=== PATIENT | male | born 1985 | race Caucasian/White ===

== ENCOUNTER 2018-02-09 13:24 | Emergency (ER) | payer OTHER ==
[2018-02-09 13:40] VITALS: RESP 16
[2018-02-09] MEDS ORDERED: SODIUM CHLORIDE 0.9% 1,000 ML IV STA (14:39)
[2018-02-09] MEDS ORDERED: diphenhydrAMINE 50 MG/ML 1 ML VIAL IVP STA (14:39)
[2018-02-09] MEDS ORDERED: KETOROLAC 30 MG/ML 1 ML VIAL IVP STA (14:39)
[2018-02-09] MEDS ORDERED: PROCHLORPERAZINE 10 MG TAB PO STA (14:40)
--- NOTE | 2018-02-09 14:46 | ED ---
Headache HPI - General Chief Complaint: Headache Stated Complaint: Fever, DOOLEY Time Seen by Provider: 02/09/18 14:19 Mode of arrival: ambulatory Limitations: no limitations - History of Present Illness Initial Comments: Patient is a 32-year-old male with a history of chronic migraines that presents for headache since Sunday. He states that since then, it has been worsening and feels a throbbing sensation back of his head and he feels like there is muscle stiffness whenever he flexes his neck and back. This morning, they became more concerned because he was having worsening symptoms but he took some Motrin and Tylenol and decided to come in. His who is a nurse practitioner was concerned because he also had 103 fever on Sunday. He denies any nausea/vomiting/diarrhea as well as cough but otherwise states that he may be coughing a little bit. He denies any occupational exposures but states that the kids have had similar type symptoms with upper respiratory infections. - Related Data Home Medications Medication Instructions Recorded Confirmed No Known Home Medications 02/09/18 02/09/18 Allergies Allergy/AdvReac Type Severity Reaction Status Date / Time No Known Allergies Allergy Verified 02/09/18 13:40 Review of Systems ROS Statement: Those systems with pertinent positive or pertinent negative responses have been documented in the HPI. Constitutional: Positive for chills, fatigue and fever. HENT: Negative for congestion. Respiratory: Negative for chest tightness, shortness of breath and wheezing. Positive for cough Cardiovascular: Negative for chest pain and palpitations. Gastrointestinal: Negative for abdominal pain. Negative for abdominal distention , diarrhea, nausea and vomiting. Genitourinary: Negative for dysuria. Musculoskeletal: Negative for back pain, neck pain and positive for neck stiffness. Skin: Negative for color change. Neurological: Negative for dizziness, speech difficulty, weakness and light- headedness. Positive for headache Psychiatric/Behavioral: Negative for agitation and confusion. Negative for anxiety ROS Other: All systems not noted in ROS Statement are negative. Past Medical History Past Medical History: No Reported History History of Any Multi-Drug Resistant Organisms: None Reported Past Surgical History: No Surgical Hx Reported Past Psychological History: No Psychological Hx Reported Smoking Status: Never smoker Past Alcohol Use History: None Reported Past Drug Use History: None Reported General Exam - General Exam Comments Initial Comments: Constitutional: Pt is oriented to person, place, and time. Pt appears well- developed and well-nourished. No distress. HENT: Head: Normocephalic and atraumatic. Eyes: EOM are normal. Neck: Normal range of motion. Neck supple. Negative Kernig and Brudzinski sign Cardiovascular: Normal rate, regular rhythm, S1 normal, S2 normal and normal heart sounds. Exam reveals no gallop and no friction rub. No murmur heard. Pulmonary/Chest: Effort normal and breath sounds normal. No tachypnea and no bradypnea. No respiratory distress. No wheezes or rales noted. Abdominal: Soft. Bowel sounds are normal. Pt exhibits no shifting dullness, no distension, no pulsatile liver, no fluid wave, no abdominal bruit and no ascites. There is no tenderness. There is no rigidity, no rebound, no guarding, no tenderness at McBurney's point and negative Barnett's sign. Musculoskeletal: Normal range of motion. Neurological: Pt is alert and oriented to person, place, and time. No cranial nerve deficit. Skin: Skin is warm and dry. No rash noted. Pt is not diaphoretic. No erythema. No pallor. Psychiatric: Pt has a normal mood and affect. Pt behavior is normal. Thought content normal. Limitations: no limitations Course Vital Signs 02/09/18 13:37 Temperature 98.4 F Pulse Rate 60 Respiratory 16 Rate Blood Pressure 139/83 O2 Sat by Pulse 100 Oximetry - Reevaluation(s) Reevaluation #1: 02/09/18 14:44 Possible treatment options were discussed with the family. It was advised that considering the patient's symptoms, lumbar puncture should be performed to evaluate for meningitis. However, it was also advised that other testing such as basic blood studies, chest x-ray and Monospot could be completed in addition to this. Patient and his kindly advised that they would like to try medical management with fluids as well as analgesics and defer lumbar puncture until labs have been obtained. The patient shows no signs of neuro deficits or meningeal signs and therefore advanced imaging including head CT would not be performed at this time. Reevaluation #2: 02/09/18 16:36 Discussed with patient and that there is no significant leukocytosis and a electrolytes were relatively within normal limits. Chest x-ray also showed that there is no infiltrate. Benefits and risks were discussed a lumbar puncture and it was advised that because there was concern of meningitis, lumbar puncture should be performed. However, joint decision between the patient and his who is a nurse practitioner, was made in the hospital and decided to decline the lumbar puncture. They stated that he felt much better after fluids and Toradol and that they would do close observation at home and return if the symptoms worsen. Medical Decision Making - Medical Decision Making As noted in the progress section, patient was noted to be resting comfortably in no acute distress at the time of discharge. Chest x-ray was also negative and one spot, strep screen negative. Patient and currently declined lumbar puncture and opted for conservative management at home and observation. Explained all labs and diagnostic test results and that we will discharge the patient home and patient is to follow up with PCP in 1-2 days and return to the ED if symptoms worsen. Pt is agreeable to plan. - Lab Data Result diagrams: 02/09/18 15:10 02/09/18 15:10 Lab Results 02/09/18 02/09/18 02/09/18 Range/Units 15:10 15:10 15:10 WBC 6.0 (3.8-10.6) k/uL RBC 5.29 (4.30-5.90) m/uL Hgb 15.9 (13.0-17.5) gm/dL Hct 46.6 (39.0-53.0) % MCV 88.2 (80.0-100.0) fL MCH 30.1 (25.0-35.0) pg MCHC 34.2 (31.0-37.0) g/dL RDW 12.9 (11.5-15.5) % Plt Count 117 L (150-450) k/uL Neutrophils % 67 % Lymphocytes % 20 % Monocytes % 9 % Eosinophils % 1 % Basophils % 0 % Neutrophils # 4.0 (1.3-7.7) k/uL Lymphocytes # 1.2 (1.0-4.8) k/uL Monocytes # 0.5 (0-1.0) k/uL Eosinophils # 0.0 (0-0.7) k/uL Basophils # 0.0 (0-0.2) k/uL Sodium 141 (137-145) mmol/L Potassium 4.2 (3.5-5.1) mmol/L Chloride 101 (98-107) mmol/L Carbon Dioxide 28 (22-30) mmol/L Anion Gap 12 mmol/L BUN 15 (9-20) mg/dL Creatinine 0.90 (0.66-1.25) mg/dL Est GFR (CKD-EPI)AfAm >90 (>60 ml/min/1.73 sqM) Est GFR (CKD-EPI)NonAf >90 (>60 ml/min/1.73 sqM) Glucose 88 (74-99) mg/dL Calcium 9.2 (8.4-10.2) mg/dL Magnesium 1.8 (1.6-2.3) mg/dL Heterophile Antibody Negative (Negative) Group A Strep Rapid (Negative) 02/09/18 Range/Units 15:10 WBC (3.8-10.6) k/uL RBC (4.30-5.90) m/uL Hgb (13.0-17.5) gm/dL Hct (39.0-53.0) % MCV (80.0-100.0) fL MCH (25.0-35.0) pg MCHC (31.0-37.0) g/dL RDW (11.5-15.5) % Plt Count (150-450) k/uL Neutrophils % % Lymphocytes % % Monocytes % % Eosinophils % % Basophils % % Neutrophils # (1.3-7.7) k/uL Lymphocytes # (1.0-4.8) k/uL Monocytes # (0-1.0) k/uL Eosinophils # (0-0.7) k/uL Basophils # (0-0.2) k/uL Sodium (137-145) mmol/L Potassium (3.5-5.1) mmol/L Chloride (98-107) mmol/L Carbon Dioxide (22-30) mmol/L Anion Gap mmol/L BUN (9-20) mg/dL Creatinine (0.66-1.25) mg/dL Est GFR (CKD-EPI)AfAm (>60 ml/min/1.73 sqM) Est GFR (CKD-EPI)NonAf (>60 ml/min/1.73 sqM) Glucose (74-99) mg/dL Calcium (8.4-10.2) mg/dL Magnesium (1.6-2.3) mg/dL Heterophile Antibody (Negative) Group A Strep Rapid Negative (Negative) Disposition Clinical Impression: Thrombocytopenia, Headache Disposition: HOME SELF-CARE Condition: Good Instructions: Acute Headache (ED) Is patient prescribed a controlled substance at d/c from ED?: No Referrals: Wellington Leger DO [Primary Care Provider] - 1-2 days Time of Disposition: 16:38
[2018-02-09 15:47] LABS: Anion Gap 12 mmol/L; Blood Urea Nitrogen 15 mg/dL (9-20); Calcium 9.2 mg/dL (8.4-10.2); Carbon Dioxide 28 mmol/L (22-30); Chloride 101 mmol/L (98-107); Glucose 88 mg/dL (74-99); Magnesium 1.8 mg/dL (1.6-2.3); Potassium 4.2 mmol/L (3.5-5.1); Sodium 141 mmol/L (137-145)
[2018-02-09 15:54] LABS: Basophils % (A) 0 %; Eosinophils % (A) 1 %; HCT 46.6 % (39.0-53.0); HGB 15.9 gm/dL (13.0-17.5); Lymphocytes # (A) 1.2 k/uL (1.0-4.8); Lymphocytes % (A) 20 %; MCH 30.1 pg (25.0-35.0); MCHC 34.2 g/dL (31.0-37.0); MCV 88.2 fL (80.0-100.0); Mean Platelet Volume 7.8; Monocytes # (A) 0.5 k/uL (0-1.0); Monocytes % (A) 9 %; Neutrophils % (A) 67 %; Platelet Count 117 k/uL (150-450); RBC 5.29 m/uL (4.30-5.90); RDW 12.9 % (11.5-15.5)
--- NOTE | 2018-02-09 16:15 | XR ---
EXAMINATION TYPE: XR chest 2V DATE OF EXAM: 02/09/2018 COMPARISON: NONE HISTORY: Chest pain TECHNIQUE: Frontal and lateral views of the chest are obtained. FINDINGS: There is no focal air space opacity, pleural effusion, or pneumothorax seen. The cardiac silhouette size is within normal limits. The osseous structures are intact. IMPRESSION: No acute cardiopulmonary process.
[2018-02-09 16:52] VITALS: BP 122/71; PULSE 63; TEMP 97.9
== END 2018-02-09 16:57 | disposition home or self-care (01) ==
LOC: EC 13:24
DX: D69.6 Thrombocytopenia, unspecified (principal); R51 Headache; Z53.29 Procedure and treatment not carried out because of patient's decision for other reasons; Z86.69 Personal history of other diseases of the nervous system and sense organs
CPT/HCPCS: 36415; 80048; 83735; 85025; 86308; 87081; 87430; 71046; 99283; 96374; 96375; 96361 ×2; S0183; J1200; J1885

== ENCOUNTER → 2019-11-14 | Outpatient (CLI) | payer OTHER ==
--- NOTE | 2019-11-14 12:11 | US ---
EXAMINATION TYPE: US groin RT DATE OF EXAM: 11/14/2019 COMPARISON: NONE CLINICAL HISTORY: R10.30 groin pain, N50.81 testicular pain. No prominent lymph nodes. No evidence of hernia by today's ultrasound. Real-time dynamic scanning shows no suspicious solid cystic mass or fluid collection. No suspicious a denopathy. No obvious hernia on dynamic imaging extending towards the midline. IMPRESSION: As above.
--- NOTE | 2019-11-14 12:12 | US ---
EXAMINATION TYPE: US groin LT DATE OF EXAM: 11/14/2019 COMPARISON: NONE CLINICAL HISTORY: R10.30 groin pain, N50.81 testicular pain. No prominent lymph nodes. No evidence of hernia by today's ultrasound. Real-time scanning left groin region shows no worrisome mass or adenopathy. No suspicious fluid colle ction or obvious hernia. IMPRESSION: As above.
--- NOTE | 2019-11-14 12:20 | US ---
EXAMINATION TYPE: US scrotum with doppler. Grayscale and color Doppler Duplex imaging performed of t he scrotum. DATE OF EXAM: 11/14/2019 COMPARISON: NONE CLINICAL HISTORY: R10.30 groin pain, N50.81 testicular pain. EXAM MEASUREMENTS: TESTICLES: Right Testicle: 4.7 x 2.3 x 2.8 cm Left Testicle: 5.1 x 2.2 x 2.7 cm EPIDIDYMIS HEAD: Right Epididymis: 1.2 cm, cyst measuring 3mm Left Epididymis: 1.2 cm Doppler performed to assess for testicular vascularity; good bilateral color flow and waveforms are s een. Presence of hydroceles: No Presence of varicoceles: No Color images show satisfactory blood flow to both testicles. IMPRESSION: Unremarkable study.
== END | disposition home or self-care (01) ==
LOC: RADUSWWP 10:50
PROVIDERS: ATTEND Family Medicine
DX: R10.2 Pelvic and perineal pain (principal)
CPT/HCPCS: 76870; 93975

== ENCOUNTER → 2020-10-13 | Outpatient (CLI) | payer OTHER ==
--- NOTE | 2020-10-13 11:46 | US ---
EXAMINATION TYPE: US abdomen complete DATE OF EXAM: 10/13/2020 COMPARISON: NONE CLINICAL HISTORY: 35-year-old male R14.0 ABD DISTENSION. TECHNIQUE: Multiple sonographic images of the abdomen are obtained. FINDINGS: EXAM MEASUREMENTS: Liver Length: 11.9 cm Gallbladder Wall: 0.23 cm CBD: 0.25 cm Spleen: 10.8 cm Right Kidney: 11.5 cm Left Kidney: 10.9 cm Ceo And President notes: Extensive overlying bowel content limiting study. Pancreas: Mostly obscured by bowel gas Liver: left lobe not well visualized. The visualized right lobe shows a homogeneous appearance witho ut focal lesion. Gallbladder: wnl Evidence for sonographic Barnett's sign: No CBD: wnl Spleen: limited views Right Kidney: wnl Left Kidney: somewhat limited visualization due to overlying bowel, appears wnl as seen Upper IVC: wnl Abd Aorta: wnl IMPRESSION: Limited visualization of multiple structures there are extensive bowel gas. No gallstones or biliary ductal dilatation seen.
--- NOTE | 2020-10-13 11:47 | US ---
EXAMINATION TYPE: US groin RT DATE OF EXAM: 10/13/2020 COMPARISON: NONE CLINICAL HISTORY: 35-year-old male R10.31 RLQ PAIN. TECHNIQUE: Multiple sonographic images of the right frontal region without and with Valsalva. FINDINGS: [employer] Operator notes: No evidence of direct or indirect hernia in the right lower quadrant, lateral or m edial to epigastric arteries. IMPRESSION: Imaging performed without and with Valsalva. A right inguinal hernia could not be identified.
== END | disposition home or self-care (01) ==
LOC: RADUSWWP 08:48
PROVIDERS: ATTEND Family Medicine
DX: R10.31 Right lower quadrant pain (principal); R14.0 Abdominal distension (gaseous)
CPT/HCPCS: 76700

== ENCOUNTER → 2023-08-08 | Outpatient (CLI) | payer OTHER ==
--- NOTE | 2023-08-10 08:20 | MR ---
EXAMINATION TYPE: MR hip RT wo con DATE OF EXAM: 08/08/2023 COMPARISON: None HISTORY: Rt hip pain with limited movement x 6 months Standard multiplanar, multisequence MRI departmental protocol Multiplanar, multisequence images of the pelvis focusing on the right hip were acquired without contr ast. FINDINGS: There are symmetric small to moderate sized bilateral hip joint effusions. Symmetric mild a xial joint space loss in both hips is present. Femoral head shapes are maintained bilaterally. No matthew picious increased T2 signal are osseous edema. No serpiginous diminished T1 signal to suggest avascul ar necrosis. Prominent right-sided fovea incidentally noted. No obvious osseous erosions or subchondr al cystic change in the acetabulum. No significant groin hernia or adenopathy is present bilaterally. Muscle bulk is symmetric and maintained bilaterally. Prostate gland is normal in size. No suspicious bowel dilatation. No free fluid in the pelvis. IMPRESSION: Symmetric small to moderate-sized bilateral hip joint effusions otherwise No significant finding is seen to account for patient's symptoms.
== END | disposition home or self-care (01) ==
LOC: RADMRIMAIN 19:11
PROVIDERS: ATTEND Orthopaedic Surgery
DX: M25.451 Effusion, right hip (principal); M16.11 Unilateral primary osteoarthritis, right hip; M87.051 Idiopathic aseptic necrosis of right femur

== ENCOUNTER → 2024-08-25 | Outpatient (CLI) | payer OTHER ==
--- NOTE | 2024-08-25 15:22 | US ---
EXAMINATION TYPE: US thyroid st tissue head/neck DATE OF EXAM: 08/25/2024 COMPARISON: NONE CLINICAL INDICATION: Male, 39 years old with history of R22.1 LOCALIZED SWELLING, MASS AND LUMP, NECK ; Lump left neck since May. Patient states he can't specify exactly where. He said it doesn't fee l right from upper lateral left neck down through supraclavicular area. TECHNIQUE: Grayscale and color Doppler imaging of the thyroid gland. FINDINGS: GLAND SIZE: Right Lobe: 6.1 x 1.7 x 1.7 cm Overall Parenchyma: homogeneous Left Lobe: 5.7 x 1.4 x 2.1 cm Overall Parenchyma: homogeneous Isthmus Thickness: 0.2 cm NODULES RIGHT: # of nodules measured on right: 0 LEFT: # of nodules measured on left: 0 ISTHMUS: # of nodules measured in the isthmus: 0 Bilateral neck scanned. *Appearance of a lymph node left supraclavicular area: 0.7 x 0.5 x 0.3 cm. *Appearance of a lymph node left submandibular area: 0.9 x 1.1 x 0.5 cm. No thickened cortex. No abnormality seen in area of patient's concern. IMPRESSION: Subcentimeter benign-appearing lymph nodes left submandibular and supraclavicular region. No concerni ng focal mass or suspicious adenopathy noted. [facility], , 08/25/2024 3:20 PM
== END | disposition home or self-care (01) ==
LOC: RADUSWWP 14:48
PROVIDERS: ATTEND Family Medicine
DX: R22.1 Localized swelling, mass and lump, neck (principal)
CPT/HCPCS: 76536